=== PATIENT | female | born 1975 | race Two or more races ===

== ENCOUNTER 2017-05-20 13:01 | Emergency (ER) | payer OTHER ==
[~2017-05-20] VITALS: Ht 165.1 cm; Wt 122.5 kg
[2017-05-20] MEDS ORDERED: traMADol 50mg tab ORAL ONE (13:15)
--- NOTE | 2017-05-20 13:32 | Diagnostic Imaging Report ---
Indication: PAIN Technique: 3 views of the right ankle Comparison: none Findings: There is lateral soft tissue swelling. No acute fractures. No dislocations. Joint spaces are preserved. There are plantar and calcaneal spurs Impression: Lateral soft tissue swelling No acute bony trauma
[2017-05-20] MEDS ORDERED: IBUPROFEN600 MG ORAL (13:39)
[2017-05-20] MEDS ORDERED: TRAMADOL HCL50 MG ORAL (13:39)
[2017-05-20 14:25] VITALS: BP 106/66
--- NOTE | 2017-05-20 15:35 | Emergency Room Report ---
History of Present Illness General Chief Complaint: Lower Extremity Injury Source: Patient, EMS Present Illness HPI The patient is a 41-year-old female presenting for pain after falling today. She states that she was walking down steps when she felt her right ankle folded underneath her and then fell onto her right knee. She denies hitting her head or loss of consciousness. Pain is a 10 out of 10 dull ache to the right ankle and knee. Worse with movement. She denies previous injury to these areas. She denies any numbness or tingling. She denies any other symptoms Allergies: Coded Allergies: PENICILLINS (Verified Allergy, Unknown, 05/20/17) Patient History Past Medical History: see triage record Pertinent Family History: none Reviewed Nursing Documentation: PMH: Agreed, PSxH: Agreed Nursing Documentation-PMH Past Medical History: No Stated History Review of Systems All Other Systems: negative except mentioned in HPI Physical Exam Vital Signs Date Time Temp Pulse Resp B/P (MAP) Pulse Ox O2 Delivery O2 Flow Rate FiO2 05/20/17 12:54 98.4 95 20 141/71 99 Room Air Sp02 EP Interpretation: reviewed, normal General Appearance: no apparent distress, alert, GCS 15, non-toxic Head: normocephalic, atraumatic Eyes: bilateral eye normal inspection, bilateral eye PERRL ENT: hearing grossly normal, no angioedema, normal voice Musculoskeletal: no calf tenderness, decreased range of motion - R ankle, swelling - R ankle, tender - R lateral ankle and R anterior knee Neurologic: alert, oriented x3, responsive, motor strength/tone normal, sensory intact, speech normal Psychiatric: judgement/insight normal, memory normal, mood/affect normal, no suicidal/homicidal ideation Skin: normal color, no rash, warm/dry, well hydrated Procedures Splinting Splinting : Consent: Verbal Location: R leg Hand-Made Type: plaster Splint: poserior short Pre-Proc Neuro Vasc Exam: normal Post-Proc Neuro Vasc Exam: normal Patient Tolerated: Well Complications: None Medical Decision Making PA Attestation Dr. Scruggs is my supervising physician. Patient management was discussed with my supervising physician Diagnostic Impression: Primary Impression: Right ankle sprain Qualified Codes: S93.401A - Sprain of unspecified ligament of right ankle, initial encounter Additional Impression: Injury of lower extremity Qualified Codes: S89.91XA - Unspecified injury of right lower leg, initial encounter ER Course The patient is a 41-year-old female presenting for pain after falling today Ddx considered include but not limited to sprain/strain, fracture, contusion Physical exam: No apparent distress R knee: Tenderness to palpation over anterior aspect. No ecchymosis or edema. Full active range of motion is intact R ankle: There is tenderness to palpation and edema over the R lateral malleolus. Limited active range of motion. Sensation intact to light touch. X-ray of the knee and ankle is unremarkable Right lower leg is placed in a posterior splint and the patient is provided crutches. She is given a rice instructions ER precautions are given. Patient given prescription for Motrin and will follow up with primary care physician. Other X-Ray Diagnostic Results Other X-Ray Diagnostic Results #1: X-Ray ordered: R knee # of Views/Limited Vs Complete: 3 View Indication: Pain EP Interpretation: Yes PA Xray: Interpretation reviewed, by supervising MD, and agrees with findings. Interpretation: no dislocation, no soft tissue swelling, no fractures Impression: No acute disease Electronically Signed by: Ankush Hinkle PA-C Other X-Ray Diagnostic Results #2: X-Ray ordered: R ankle # of Views/Limited Vs Complete: 3 View Indication: Pain EP Interpretation: Yes PA Xray: Interpretation reviewed, by supervising MD, and agrees with findings. Interpretation: no dislocation, no soft tissue swelling, no fractures Impression: No acute disease Electronically Signed by: Ankush Hinkle PA-C Last Vital Signs Date Time Temp Pulse Resp B/P (MAP) Pulse Ox O2 Delivery O2 Flow Rate FiO2 05/20/17 14:25 98.4 75 18 106/66 96 Room Air Status: improved Disposition: HOME, SELF-CARE Condition: Improved Scripts Tramadol Hcl* (ULTRAM*) 50 Mg Tablet 50 MG ORAL Q6H Y for For Pain, #10 TAB 0 Refills Prov: TERZIAN,ANKUSH P.A. 05/20/17 Ibuprofen* (MOTRIN*) 600 Mg Tablet 600 MG ORAL Q8H Y for For Pain, #30 TAB 0 Refills Prov: TERZIAN,ANKUSH P.A. 05/20/17 Referrals: [facility],REFERRING (PCP) Patient Instructions: Ankle Sprain, RICE for Routine Care of Injuries Additional Instructions: I discussed my findings with the patient. All questions and concerns have been answered. Treatment and medication compliance have been addressed. I advised the patient that they need to follow up with Primary doctor in 3-5 days. Return to ED if pain remains or worsens, numbness or tingling occurs, new rash is noticed, fever is noticed, or if needed for any reason. Patient verbalized understanding of discharge instructions. ANKUSH HINKLE May 20, 2017 15:35
--- NOTE | 2017-05-21 10:52 | Diagnostic Imaging Report ---
Indication: Right knee pain Technique: XRAY KNEE THREE VIEWS RIGHT Comparison: None Findings: There is no acute fracture or dislocation. No obvious joint effusion is identified. Mild anterior knee soft tissue swelling is noted. Impression: No acute osseous abnormality. Mild anterior knee soft tissue swelling. Clinical correlation recommended.
== END 2017-05-20 14:25 | disposition home or self-care (01) ==
LOC: EDBD 13:01 → EMR 13:30
DX: S93.401A Sprain of unspecified ligament of right ankle, initial encounter (principal); W10.8XXA Fall (on) (from) other stairs and steps, initial encounter; Y92.89 Other specified places as the place of occurrence of the external cause; Z88.0 Allergy status to penicillin
CPT/HCPCS: 29515; 99284